=== PATIENT | male | born 2000 | race Two or more races ===

== ENCOUNTER 2020-04-05 23:24 | Emergency (ER) | payer SELFPAY ==
[~2020-04-05] VITALS: Ht 177.8 cm; Wt 68.2 kg
[2020-04-05] MEDS ORDERED: LIDOCAINE-MPF 1%, 5ML ONE (23:55)
[2020-04-06] MEDS ORDERED: LIDOCAINE-MPF 1%, 5ML INFIL ONE
[2020-04-06] MEDS ORDERED: LIDOCAINE-MPF 1%, 5ML ONE (00:15)
[2020-04-06] MEDS ORDERED: MORPHINE SULFATE 4 MG/ML, 1ML IVPush ONE (02:30)
[2020-04-06] MEDS ORDERED: ONDANSETRON 2MG/ML, 2ML IVPush ONE (02:30)
[2020-04-06] MEDS ORDERED: MORPHINE SULFATE 4 MG/ML, 1ML ONE (02:35)
[2020-04-06] MEDS ORDERED: ONDANSETRON 2MG/ML, 2ML ONE (02:35)
[2020-04-06] MEDS ORDERED: NEOSPORIN OINT. PKT 1 PACKET ONE (03:52)
[2020-04-06 03:58] VITALS: BP 115/72
== END 2020-04-06 04:00 | disposition home or self-care (01) ==
LOC: ED 04-06 03:13
DX: S01.81XA Laceration without foreign body of other part of head, initial encounter (principal); S06.9X1A Unspecified intracranial injury with loss of consciousness of 30 minutes or less, initial encounter; G89.11 Acute pain due to trauma; R07.89 Other chest pain; M79.642 Pain in left hand; M54.2 Cervicalgia; R94.31 Abnormal electrocardiogram [ECG] [EKG]; X99.8XXA Assault by other sharp object, initial encounter; Y93.89 Activity, other specified; Y92.488 Other paved roadways as the place of occurrence of the external cause; Y99.8 Other external cause status
CPT/HCPCS: 12031; 12052; 70450; 70486; 71045; 72125; 72141; 73130; 93005; 96374; 96375; 99285; J2270; J2405